=== PATIENT | male | born 1980 | race Caucasian/White ===

== ENCOUNTER 2018-10-24 13:49 | Emergency (ER) | payer OTHER ==
[~2018-10-24] VITALS: Wt 153.4 kg
[~2018-10-24 13:49] MED LIST: CIPR500T4 PO; DENIES; DOCU-144 PO; METR500T PO; TRAM50TA2 PO
[2018-10-24 13:53] VITALS: BP 171/90; PULSE 100; RESP 18
--- NOTE | 2018-10-24 15:47 | ERD ---
ER Documentation Chief Complaint Chief Complaint RECTAL PAIN X 2 WEEKS HPI 38-year-old male past with past medical history of hemorrhoid, Asthma, diverticulosis presents for rectal pain x2 weeks. he describes the pain is 8 out of 10, described as sharp, nonradiating. The pain occurs mostly when he lies down to sleep at night. Denies any constipation or diarrhea. Denies fevers or chills. Denies chest pain or shortness of breath. There is no blood noted in his stools. The pain is a little bit worse with bowel movements. No other modifying factors noted, no treatments tried at home. ROS All systems reviewed and are negative except as per history of present illness. Medications Home Meds Active Scripts Ibuprofen* (Motrin*) 600 Mg Tab, 600 MG PO Q6H PRN for PAIN, #30 TAB Prov:ZAHRA PAINTER DO 10/24/18 Hydrocodone/Acetaminophen ([place] 5-325 Tablet) 1 Each Tablet, 1 EACH PO Q6H PRN for PAIN, #10 TAB Prov:ZAHRA PAINTER DO 10/24/18 Docusate Sodium* (Colace*) 100 Mg Capsule, 100 MG PO BID, #60 CAP Prov:YOGI LUCERO MD 12/02/15 Tramadol HCl (Tramadol HCl) 50 Mg Tablet, 50 MG PO Q4 PRN for PAIN, #20 TAB Prov:YOGI LUCERO MD 12/02/15 Metronidazole* (Flagyl*) 500 Mg Tablet, 500 MG PO BID for 10 Days, TAB Prov:YOGI LUCERO MD 12/02/15 Ciprofloxacin Hcl* (Ciprofloxacin Hcl*) 500 Mg Tablet, 500 MG PO BID, #20 TAB Prov:YOGI LUCERO MD 12/02/15 Reported Medications [Denies] No Conflict Check 07/28/10 Allergies Allergies: Coded Allergies: No Known Allergies (Verified Allergy, Mild, 07/28/10) PMhx/Soc history of hemorrhoids History of Surgery: No Anesthesia Reaction: No Hx Neurological Disorder: No Hx Respiratory Disorders: Yes (ASTHMA) Hx Cardiac Disorders: No Hx Psychiatric Problems: No Hx Miscellaneous Medical Probl: No Hx Alcohol Use: No Hx Substance Use: No Hx Tobacco Use: No FmHx Family History: No coronary disease Physical Exam Vitals Vital Signs Date Temp Pulse Resp B/P (MAP) Pulse Ox O2 O2 Flow FiO2 Time Delivery Rate 10/24/18 98.1 100 18 171/90 99 13:53 (117) Physical Exam Const: No acute distress Resp: Clear to auscultation bilaterally Cardio: Regular rate and rhythm, no murmurs Abd: Soft, , nontender, non distended. Normal bowel sounds, no McBurney's point tenderness, no Coy sign, no rebound or guarding noted Skin: No petechiae or rashes Back: No midline or flank tenderness Ext: No cyanosis, or edema Neur: Awake and alert Psych: Normal Mood and Affect Procedures/MDM Medical Decision Making: Differential diagnosis includes but not limited to acute gastritis, acute gastroenteritis, appendicitis, cholecystitis, pancreatitis, nephrolithiasis, pyelonephritis, diverticulosis, diverticulitis Patient appeared well on physical exam. Nontoxic appearing. No abdominal pain on examination and given benign abdominal exam, there is low suspicion for an acute abdomen currently. Patient does have history of diverticulosis however appears to be no current signs for acute diverticulitis. Patient did not have any abdominal pain, no fever. Symptoms possibly due to diverticulosis. Patient advised follow-up with GI specialist. Prescription(s): Patient given prescription for supportive medications including [place] short cour se low-dose. Patient also advised to increase fiber intake. Patient advised to follow up with PCP in 1-2 days. Patient advised to return to ED for new or worsening symptoms. Patient stable on discharge from the ED. The patient has been prescribed [place] during this encounter. The patient has been warned about the use of narcotics. The patient should not drive or operate heavy machinery while taking this medication. The patient was also warned about the addictive properties of narcotic medications. Narcan prescription was NOT provided given the following criteria 1. No more than 5 tablets of [place] 10 mg or 10 tablets of [place] 5 mg were prescribed. 2. Concomitant opiate and benzodiazepine prescriptions were not provided. 3. There is no obvious evidence of prior history of opiate abuse or overdose. Disclaimer: Inadvertent spelling and grammatical errors are likely due to EHR/ dictation software use and do not reflect on the overall quality of patient care. Also, please note that the electronic time recorded on this note does not necessarily reflect the actual time of the patient encounter. Departure Diagnosis: Primary Impression: Rectal pain ZAHRA PAINTER DO October 24, 2018 15:47
[2018-10-24] MEDS ORDERED: IBUP-1542 PO (15:49)
[2018-10-24] MEDS ORDERED: HYDR-4011 PO (15:49)
== END 2018-10-24 15:55 | disposition home or self-care (01) ==
LOC: FTE 13:49
DX: K62.89 Other specified diseases of anus and rectum (principal); J45.909 Unspecified asthma, uncomplicated
CPT/HCPCS: 99283